=== PATIENT | female | born 1985 | race Caucasian/White ===

== ENCOUNTER → 2016-10-24 | Outpatient (CLI) | payer OTHER ==
[2016-02-07 18:16] VITALS: BP 129/85
[~2016-10-24] MED LIST: BENZ200C47 PO; IBUP-1027 PO
--- NOTE | 2016-10-24 13:50 | CARD ---
APPROVED REPORT EXAM: Two-dimensional and M-mode echocardiogram with Doppler and color Doppler. Other Information Quality : GoodHR: 76bpm Rhythm : NSR INDICATION Murmur RISK FACTORS Obesity 2D DIMENSIONS RVDd2.7 (2.9-3.5cm)Left Atrium(2D)3.2 (1.6-4.0cm) IVSd0.8 (0.7-1.1cm)Aortic Root(2D)2.4 (2.0-3.7cm) LVDd3.8 (3.9-5.9cm)LVOT Diameter2.0 (1.8-2.4cm) PWd0.8 (0.7-1.1cm)LVDs2.4 (2.5-4.0cm) FS (%) 36.6 %SV41.5 ml LVEF(%)67.2 (>50%) Aortic Valve AoV Peak Tony.138.2cm/sAoV VTI27.6cm AO Peak GR.7.6mmHgLVOT Peak Tony.109.8cm/s AO Mean GR.4mmHgAVA (VMAX)2.47cm2 Mitral Valve MV E Xxkoflox763.8cm/sMV E Peak Gr.5mmHg MV DECEL [id number] A Lcdaweqx85.2cm/s MV E Mean Gr.2mmHgE/A Ratio1.5 MV A Vqkctalh01to Pulmonary Valve PV Peak Nmqreoxm263.2cm/s Tricuspid Valve TR P. Hvtznrut287wo/sTR Peak Gr.25mmHg Pulmonary Vein S1 Hpjmpyww34.6cm/sD2 Fqnemoei11.2cm/s PVa [id number] LEFT VENTRICLE The left ventricle is normal size. There is normal left ventricular wall thickness. The left ventricu lar systolic function is normal. The Ejection Fraction is 60-65%. There is normal LV segmental wall m otion. The left ventricular diastolic function and filling is normal for age. RIGHT VENTRICLE The right ventricle is normal size. There is normal right ventricular wall thickness. The right ventr icular systolic function is normal. ATRIA The left atrium size is normal. The right atrium size is normal. The interatrial septum is intact wit h no evidence for an atrial septal defect or patent foramen ovale as noted on 2-D or Doppler imaging. AORTIC VALVE The aortic valve is normal in structure and function. The aortic valve is trileaflet. Doppler and Col or Flow revealed no significant aortic regurgitation. There is no significant aortic valvular stenosi s. MITRAL VALVE There is no evidence of mitral valve prolapse. There is no mitral valve stenosis. Doppler and Color F low revealed trace mitral regurgitation. TRICUSPID VALVE Doppler and Color Flow revealed trace tricuspid regurgitation. The pulmonary artery systolic pressure is estimated at 28 mmHg. There is no pulmonary hypertension. PULMONIC VALVE The pulmonic valve is not well visualized but appears to open adequately. Doppler and Color Flow reve aled no pulmonic valvular regurgitation. There is no pulmonic valvular stenosis by spectral Doppler. GREAT VESSELS The aortic root is normal in size. The ascending aorta is normal in size. The pulmonary artery is nor mal. The IVC is normal in size and collapses >50% with inspiration. PERICARDIAL EFFUSION There is no evidence of significant pericardial effusion. Critical Notification Critical Value: No <Conclusion> The left ventricular systolic function is normal. The Ejection Fraction is 60-65%. There is normal LV segmental wall motion. Trace mitral regurgitation. Trace tricuspid regurgitation. The pulmonary artery systolic pressure is estimated at 28 mmHg. There is no evidence of significant pericardial effusion.
== END | disposition home or self-care (01) ==
LOC: ECHO 12:47
PROVIDERS: ATTEND Internal Medicine Cardiovascular Disease
DX: I08.1 Rheumatic disorders of both mitral and tricuspid valves (principal); R01.1 Cardiac murmur, unspecified
CPT/HCPCS: 93306

== ENCOUNTER → 2016-10-28 | Day surgery (SDC) | payer BC, OTHER ==
[~2016-10-28] MED LIST changes: +IV RINGERS,LACTATED 1000ML 1,000 ML IV SCH; +LIDOCAINE 2% PF Vial for OR 5 ML VIAL. ONE; +PROPOFOL 20 ML IV ONE
[2016-10-28 07:18] LABS: NEG OBC UR NEG; POS OBC UR POS
[2016-10-28 07:52] VITALS: BP 129/82
== END | disposition home or self-care (01) ==
LOC: ENDOS 05:42
PROVIDERS: ATTEND Internal Medicine Gastroenterology
DX: K29.50 Unspecified chronic gastritis without bleeding (principal); E66.9 Obesity, unspecified; Z68.31 Body mass index [BMI] 31.0-31.9, adult; Z86.69 Personal history of other diseases of the nervous system and sense organs; Z88.6 Allergy status to analgesic agent; Z90.49 Acquired absence of other specified parts of digestive tract; Z88.0 Allergy status to penicillin
CPT/HCPCS: 43239; 81025; J2704; J2001

== ENCOUNTER → 2016-11-04 | Outpatient (CLI) | payer OTHER ==
[2016-10-28 07:52] VITALS: BP 129/82
[~2016-11-04] MED LIST changes: +IOHEXOL 240 MG/ML 50ML VIAL. PO ONE; +IOHEXOL 300 MG/ML 75 ML VIAL IV ONE; -IV RINGERS,LACTATED 1000ML 1,000 ML IV SCH; -LIDOCAINE 2% PF Vial for OR 5 ML VIAL. ONE; -PROPOFOL 20 ML IV ONE
--- NOTE | 2016-11-04 12:10 | RAD ---
CT abdomen/pelvis 11/04/2016 1124 hours Indication: Nausea and epigastric pain. History of Hodgkin's lipoma. Comparison: None available Technique: Multiple axial CT images of the abdomen and pelvis were obtained after the administration of 75 mL Omnipaque 300 intravenously. Coronal and sagittal reformats are provided. Oral contrast was administered. Findings:. Lung bases are clear. Heart size is within normal limits. Low attenuation of the hepatic parenchyma suggestive of hepatic steatosis. No suspicious hepatic masses are identified. Spleen, bilateral adrenal glands and pancreas are within normal limits. Gallbladder is surgically absent. The abdominal aorta is normal in course and caliber. There are no pathologically enlarged lymph nodes in the abdomen or pelvis. There is no free fluid within the abdomen or pelvis. Kidneys enhance symmetrically. There is no hydronephrosis. No suspicious renal masses are identified. Opacified small and large bowel loops are normal in caliber. A normal appendix is visualized. The terminal ileum is normal. Gastric folds appear normal. Uterus and adnexa are within normal limits. Flexor changes are noted within the adnexa bilaterally. Urinary bladder is within normal limits. No suspicious osseous lesions are identified. Impression: 1. No significant abnormality identified within the abdomen or pelvis. 2. There is suggestion of hepatic steatosis. 3. Spleen is not enlarged. No pathologic abdominal or pelvic lymphadenopathy. PQRS Compliance Statement: One or more of the following individualized dose reduction techniques were utilized for this examination: 1. Automated exposure control 2. Adjustment of the mA and/or kV according to patient size 3. Use of iterative reconstruction technique
== END | disposition home or self-care (01) ==
LOC: CT 10:23
PROVIDERS: ATTEND Internal Medicine Gastroenterology
DX: K76.0 Fatty (change of) liver, not elsewhere classified (principal); Z85.71 Personal history of Hodgkin lymphoma
CPT/HCPCS: 74177

== ENCOUNTER → 2016-11-28 | Outpatient (CLI) | payer OTHER ==
[2016-10-28 07:52] VITALS: BP 129/82
[~2016-11-28] MED LIST changes: -IOHEXOL 240 MG/ML 50ML VIAL. PO ONE; -IOHEXOL 300 MG/ML 75 ML VIAL IV ONE
--- NOTE | 2016-11-28 11:52 | RAD ---
Radionuclide gastric emptying study, 11/28/2016: History: Abdominal pain and bloating The study was performed utilizing a solid test meal radiolabeled with 2.1 mCi of technetium 99m sulfur colloid. The time to half emptying of the test meal from the patient's stomach was estimated at 190 minutes. A normal T1/2 is 60 minutes +/- 30 minutes. IMPRESSION: Moderately delayed gastric emptying
== END | disposition home or self-care (01) ==
LOC: NM 09:31
PROVIDERS: ATTEND Internal Medicine Gastroenterology
DX: K30 Functional dyspepsia (principal); R14.0 Abdominal distension (gaseous); R11.2 Nausea with vomiting, unspecified
CPT/HCPCS: 78264; A9541